=== PATIENT | male | born 1975 | race Two or more races ===

== ENCOUNTER 2020-02-25 14:07 | Emergency (ER) | payer OTHER ==
[~2020-02-25] VITALS: Ht 172.7 cm; Wt 104.3 kg
[2020-02-25] MEDS ORDERED: FLONASE16 GM (14:19)
[2020-02-25] MEDS ORDERED: ZYRTEC10 MG (14:19)
[2020-02-25] MEDS ORDERED: VISTARIL50 MG PO (19:00)
== END 2020-02-25 19:59 | disposition home or self-care (01) ==
LOC: ER 14:07
DX: R07.89 Other chest pain (principal); F41.0 Panic disorder [episodic paroxysmal anxiety]; F43.0 Acute stress reaction; Z03.818 Encounter for observation for suspected exposure to other biological agents ruled out